=== PATIENT | female | born 1975 | race Hispanic/Latino ===

== ENCOUNTER → 2017-11-10 | Outpatient (CLI) | payer BC ==
[~2017-11-10] MED LIST: CEPH500B PO; HYDR-309 PO; NAPR-1192 PO
== END | disposition home or self-care (01) ==
LOC: RAH 14:34
PROVIDERS: ATTEND Physician Assistant Medical
DX: N63.41 Unspecified lump in right breast, subareolar (principal); N63.42 Unspecified lump in left breast, subareolar; R92.2 Inconclusive mammogram
CPT/HCPCS: 76641; 77066

== ENCOUNTER → 2018-02-05 | Outpatient (CLI) | payer OTHER | END | disposition home or self-care (01) | LOC: RAH 13:40 | PROVIDERS: ATTEND Orthopaedic Surgery | DX: S83.511D Sprain of anterior cruciate ligament of right knee, subsequent encounter (principal); X58.XXXD Exposure to other specified factors, subsequent encounter | CPT/HCPCS: 93971 ==

== ENCOUNTER → 2018-12-23 | Outpatient (CLI) | payer BC ==
[~2018-12-23] MED LIST changes: -HYDR-309 PO; +HYDR-4457 PO
== END | disposition home or self-care (01) ==
LOC: RAH 07:23
PROVIDERS: ATTEND Physician Assistant Medical
DX: N60.02 Solitary cyst of left breast (principal); N60.01 Solitary cyst of right breast; R59.0 Localized enlarged lymph nodes; R92.2 Inconclusive mammogram
CPT/HCPCS: 76641; 77066

== ENCOUNTER → 2019-05-09 | Outpatient (CLI) | payer OTHER | END | disposition home or self-care (01) | LOC: RAH 14:24 | PROVIDERS: ATTEND Physician Assistant Medical | DX: N60.01 Solitary cyst of right breast (principal); N63.10 Unspecified lump in the right breast, unspecified quadrant | CPT/HCPCS: 76642 ==

== ENCOUNTER → 2021-02-18 | Outpatient (CLI) | payer OTHER | END | disposition home or self-care (01) | LOC: OIH 09:09 | PROVIDERS: ATTEND Internal Medicine Cardiovascular Disease | DX: Z13.6 Encounter for screening for cardiovascular disorders (principal) | CPT/HCPCS: 75571 ==

== ENCOUNTER → 2021-08-16 | Outpatient (CLI) | payer OTHER | END | disposition home or self-care (01) | LOC: RAH 13:40 | PROVIDERS: ATTEND Physician Assistant Medical | DX: R92.2 Inconclusive mammogram (principal); N60.02 Solitary cyst of left breast; N60.01 Solitary cyst of right breast; N63.21 Unspecified lump in the left breast, upper outer quadrant | CPT/HCPCS: 77066 ==

== ENCOUNTER 2025-01-13 22:22 | Emergency (ER) | payer OTHER ==
[~2025-01-13] VITALS: Ht 172.7 cm; Wt 104.3 kg
--- NOTE | 2025-01-13 22:24 | NUR ---
UA CUP PROVIDED
--- NOTE | 2025-01-13 22:31 | NUR ---
UA COLLECTED AND SENT
--- NOTE | 2025-01-13 22:42 | NUR ---
PATIENT REPORTS SHE WAS SEEN BY PCP FOR SAME AND PRESCRIBED MEDICATIONS, CONTINUES WITH ITCHING
[2025-01-13] MEDS: FAMOTIDINE 20MG VIAL IV ONE (23:20)
[2025-01-13] MEDS: 0.9%NACL 1000ML 1,000 ML IV ONE (23:20)
--- NOTE | 2025-01-14 01:05 | ERN ---
General Chief Complaint: Allergic Reaction Stated Complaint: ALLERGIC REACTION Time Seen by MD: 22:34 Time Seen by Midlevel: 22:34 Source: patient History of Present Illness Initial Comments Patient is a 42 y/o female presenting to the emergency department for evaluation of a possible allergic reaction. Patient reports developing hives yesterday. She was seen by her primary care doctor and prescribed multiple medications that improved her symptoms temporarily however they return today so she decided to report to the ER for further evaluation. Allergies: Coded Allergies: No Known Drug Allergies (Unverified Allergy, Unknown, 11/19/17) Home Meds Active Scripts Diphenhydramine HCl (Benadryl) 25 Mg Cap, 25 MG PO BID for 5 Days, #10 CAP Prov:LEVI JIMENEZ 01/14/25 Cephalexin Monohydrate (Keflex) 500 Mg Cap, 500 MG PO Q8H, #7 CAP Prov:NIEVES GONZALEZ MD 11/20/17 Naproxen (Naproxen) 375 Mg Tablet, 375 MG PO BIDMEALS, #60 TAB Prov:NIEVES GONZALEZ MD 11/20/17 Hydrocodone/Acetaminophen ([place] 5-325 Tablet) 1 Each Tablet, 1-2 EACH PO Q6H for pain, #90 TAB Prov:NIEVES GONZALEZ MD 11/20/17 Past Medical History Past Medical History: Other Medical History Other: GRAVES,THYROID EYE Past Surgical History: BTL Female( History) LMP: Jan 06, 2025 ROS Dictation CONSTITUTIONAL: Negative except for HPI HEAD/FACE: Negative except for HPI EENT: Negative except for HPI RESPIRATORY: Negative except for HPI GASTROINTESTINAL/ABDOMINAL: Negative except for HPI GENITOURINARY: Negative except for HPI MUSCULOSKELETAL: Negative except for HPI INTEGUMENTARY: Negative except for HPI NEUROLOGICAL/PSYCH: Negative except for HPI HEMATOLOGIC/LYMPHATIC: Negative except for HPI All Systems Negative, Except as noted above. 13 point review of systems assessed and all negative except for above. Physical Exam Physical Exam Dictation Vital Signs reviewed General Appearance: Alert, oriented x 3, no acute distress, well developed, nourished. Head and Face: non-traumatic. Eyes: PERRL, pink conjunctivas, eyelid no trauma, anterior chamber with arcus senilis. Ears: Pinnas intact and no signs of trauma or erythema ear canals clear and no discharge TM no erythema Nose: No discharge, no bleeding. Oropharynx: Mouth normal, tongue pink, pharynx clear,no erythema, tonsils no exudates, no abscesses noted, mucous membrane moist Neck: Supple, non-tender, no thyromegaly, no masses, no JVD, no bruits Breast:Deferred Chest:No tenderness, no crepitus, no paradoxical movement, no retractions Lungs:Clear, well-ventilated, symmetric, no rales, no wheezing, no rhonchi, no stridor, good breath sounds bilaterally Heart: Regular rate, regular rhythm, no murmur, no gallops Vascular: no peripheral edema, Abdomen: Soft, positive bowel sounds, nondistended, no guarding, nontender, no rebound, no masses no hepatomegaly, no splenomegaly, no Malone's sign, no hernias. Rectal: Deferred Genital: Deferred Neurological: Normal speech, motor function intact, sensory function intact Musculoskeletal: Neck nontender, full range of motion, back nontender, full range of motion, Extremities: nontender, full range of motion Skin: Color pink, dry, no turgor, no rash, no lacerations, no abrasions, no contusions. Lymphatic: Deferred MDM MDM: Differential diagnosis: Acute allergic reaction, cellulitis, hives There are no social concerns with this patient. Prescription drug management Prescriptions will include: Benadryl Medical management and examination interpretation discussions were had by me with other qualified healthcare professionals as indicated for the patient's care. ED Course Orders Procedure Category Date Status Time 0.9%Nacl 1000ml (Ns PHA 01/13/25 Complete 1000ml) 23:00 Diphenhydramine Hcl PHA 01/13/25 Complete (Benadryl Inj) 23:00 Famotidine 20mg Vial PHA 01/13/25 Complete (Pepcid 20mg Vial) 23:00 Methylprednisolone PHA 01/13/25 Complete Succ 125mg (Solu-Medr 23:00 Current Medications Medications (Trade) Dose Ordered Sig/Antonia Route PRN Reason Start Time Stop Time Status Last Admin Dose Admin Diphenhydramine HCl (BENAdryl INJ) 25 mg ONCE ONCE IV 01/13/25 23:00 01/13/25 23:06 DC 01/13/25 23:19 Famotidine (Pepcid 20mg Vial) 20 mg ONCE ONCE IV 01/13/25 23:00 01/13/25 23:06 DC 01/13/25 23:20 Methylprednisolone Sodium Succinate (Solu-medROL 125MG) 125 mg ONCE ONCE IVP 01/13/25 23:00 01/13/25 23:06 DC 01/13/25 23:20 Sodium Chloride 1,000 ml @ 0 mls/hr ONCE ONCE IV 01/13/25 23:00 01/13/25 23:06 DC 01/13/25 23:20 Vital Signs Date Time Temp Pulse Resp B/P (MAP) Pulse Ox O2 Delivery O2 Flow Rate FiO2 01/14/25 01:40 98.2 78 17 139/82 99 Room Air* 0 21 01/13/25 22:23 98.1 84 18 156/104 98 Room Air DX & DISP Disposition: Discharge Departure Impression: Primary Impression: Acute allergic reaction Condition: Stable Scripts Diphenhydramine HCl (Benadryl) 25 Mg Cap 25 MG PO BID for 5 Days, #10 CAP Prov: LEVI JIMENEZ 01/14/25 Referrals: GUSTAVO MIRANDA (PCP) Time of Disposition: 01:18 I have reviewed the case, and I agree with, Diagnosis and Plan I performed the substantive portion of the visit. I have reviewed and personally made and approve the management plan that is documented in the note by myself or the [facility]. I acknowledge for responsibility for the patient's management plan. LEVI JIMENEZ Jan 14, 2025 01:05
[2025-01-14] MEDS ORDERED: DIPH-1242 PO (01:19)
[2025-01-14 01:40] VITALS: BP 139/82; PULSE 78; RESP 17; TEMP 98.3; O2SAT 99
== END 2025-01-14 01:41 | disposition home or self-care (01) ==
LOC: EDH 22:22
DX: T78.40XA Allergy, unspecified, initial encounter (principal); Z98.51 Tubal ligation status; Z79.899 Other long term (current) drug therapy; X58.XXXA Exposure to other specified factors, initial encounter
CPT/HCPCS: 99284; 96374; 96375; J2919; J1200; J3490; J7030